=== PATIENT | male | born 1950 | race Caucasian/White ===

== ENCOUNTER 2022-04-05 10:08 | Day surgery (SDC) | payer BC, SELFPAY ==
[2022-04-05 10:32] VITALS: BMI 29.8
[2022-04-05] MEDS: TETRACAINE 0.5% OPHTH 1 DROP EYE-LEFT (10:35)
[2022-04-05 10:40] VITALS: BP 134/78; PULSE 73; RESP 20; TEMP 36.8; O2SAT 99
[2022-04-05] MEDS: KETOROLAC OPHTH 0.5% 1 DROP EYE-LEFT ×5 (10:41→11:01)
[2022-04-05] MEDS: SODIUM CHLORIDE 0.9 % (FLUSH) 10 ML SYRINGE IVF (11:10)
[2022-04-05] MEDS: BALANCED SALT IRRIG SOLN 15 ML EYE-LEFT (12:08)
[2022-04-05] MEDS: TETRACAINE 0.5% OPHTH 2 DROP EYE-LEFT (12:08)
--- NOTE | 2022-04-05 12:55 | W.ANESCHARGE ---
Anesthesia Charges Start Date/Time Anesthesia Start Date: 04/05/22 Anesthesia Start Time: 12:16 Stop Date/Time Anesthesia Stop Date: 04/05/22 Anesthesia Stop Time: 12:55 Summary Emergency: No Extremes of Age: Over 70-CPT 19373
[2022-04-05 13:02] VITALS: BP 115/74; PULSE 67; RESP 20; TEMP 36.8; O2SAT 97
--- NOTE | 2022-04-05 13:12 | W.ANESCHARGE ---
Anesthesia Charges Start Date/Time Anesthesia Start Date: 04/05/22 Anesthesia Start Time: 12:16 Stop Date/Time Anesthesia Stop Date: 04/05/22 Anesthesia Stop Time: 12:55 Summary Emergency: No Extremes of Age: Over 70-CPT 14610
[2022-04-05 13:25] VITALS: BP 116/78; PULSE 71; RESP 20; O2SAT 98
--- NOTE | 2022-05-08 07:32 | OP_ITS ---
OPERATIVE PROCEDURE Kelman phacoemulsification, left eye, with a posterior chamber lens implant. PREOP DIAGNOSIS Nuclear sclerotic cataract, cortical cataract, combined left eye. POSTOP DIAGNOSIS Nuclear sclerotic cataract, cortical cataract, combined left eye, repaired. INDICATIONS FOR SURGERY The patient has experienced a painless progressive loss of vision in his left eye over the past several years. ?It is interfering with his reading, driving, and day-to-day activities. ?This is his only seeing eye. ?He has difficulty with disabling night glare. ?For that reason, he elected to proceed with surgical repair. ?Corrective lenses were not beneficial to him. ?Severity 03/19. OPERATIVE PROCEDURE After obtaining informed consent, the left eye was dilated with a combination of 1% Mydriacyl, 2.5% phenylephrine with topical Ocufen and Vigamox applied to the corneal surface. ?He was brought to the main operating room where under IV sedation, left eye was prepped and draped in usual sterile fashion for intraocular surgery. ?After performing a pause to identify the correct patient, correct?dioptric?lens implant, 18.5 diopters, and correct procedure Kelman phacoemulsification. ?After sterile prep and drape, a lid speculum was placed and a paracentesis created at 6 o'clock. ?The chamber was filled with OVD and entered temporally with a keratome. ?A continuous tear capsulotomy was performed. ?The nucleus was then hydrodissected with local anesthetic and emulsified in a chop technique in the capsular bag. ?Residual cortex was clean. The capsule was clear. ?At this point, a model ZCBOO 18.5 diopter posterior chamber lens implant was injected into the capsular bag and was well centered. ?Residual OVD was cleaned from behind the implant and from the implant, the incision hydrated and noted to be leak free. Topical Alphagan, pilocarpine, and Vigamox were applied to the corneal surface. ?The patient returned to recovery in good condition having tolerated the procedure well. CONDITION ON DISCHARGE Satisfactory.
== END 2022-04-05 13:36 | disposition home or self-care (01) ==
PROVIDERS: PCP Family Medicine; Visit Provider Ophthalmology
PROC: (CPT 66984; principal; 2022-04-05 11:30)
DX: H25.812 Combined forms of age-related cataract, left eye (principal)
CPT/HCPCS: 66984; 00142; 99100; A9270; J2250; J3010; S0020; V2632

== ENCOUNTER 2024-04-11 07:15 | Outpatient (CLI) | payer BC, SELFPAY ==
--- OUTSIDE RECORDS SUMMARY | 2024-04-11 07:19 | XMS_ITS | Clinical Summary ---
Author Organization [employer] [facility] [employer] [facility] Address [place], [place] [address] Care Team Providers Care Water Resources Engineer Name Role Phone Ellis Hammer MD Primary Care Provider [phone]- [phone] Allergies No known active allergies Medications Medication Sig Dispensed Refills Start Date End Date Status aspirin (ECOTRIN) 81 mg enteric coated tablet Take 1 tablet by mouth once daily with a meal. 0 9 Active Cholecalciferol, Vitamin D3, 400 unit capsule Vitamin D3 10 mcg (400 unit) oral capsule take 1 capsule by oral route daily Active Active Soewf-0-WSP-EPA-Fi sh Oil 1,000 mg (120 mg-180 mg) cap Take 1 Capsule (1,000 mg) by mouth. 0 2 Active vit C,K-Nz-vtual-lutei n-zeaxan (PreserVision AREDS-2) capsule Take 1 Capsule by mouth once daily. 0 2 Active polyethylene glycol-electrolyte (GOLYTELY) 236-22.74-6.74 -5.86 gram suspensionIndicati ons:Adenomatous polyp of colon, unspecified part of colon Drink 2 liters the day before colonoscopy and 2 liters 6 hours before colonoscopy appointment 4000 mL 4 Active simvastatin (ZOCOR) 10 mg tabletIndications: Other hyperlipidemia Take 1 Tablet (10 mg) by mouth at bedtime. 90 Tablet 2 4 Active simvastatin (ZOCOR) 10 mg tabletIndications: Other hyperlipidemia TAKE ONE TABLET BY MOUTH AT BEDTIME 90 Tablet 4 03/22/20 24 Discontinued plecanatide 3 mg tabIndications:Chr onic constipation Take 1 pill per day by mouth 30 Tablet 11 4 04/09/20 24 Discontinued(*A vailability/For mulary change/Cost of medication) amoxicillin-clavul anate 875-125 mg tablet (AUGMENTIN)Indicat ions:Cellulitis of toe, right Take 1 Tablet by mouth two times daily with meals for 10 days. 20 Tablet 4 03/14/20 24 Active Problems Problem Noted Date Diagnosed Date Depression, recurrent 01/08/2024 Ocular migraine 02/02/2021 Overview: He gets squiggly lines in the peripheral vision of his left eye (his only good eye; he is blind in his right eye). It only lasts for a few minutes. This was felt to be due to an Ocular Migraine. 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 HYPERLIPIDEMIA 07/09/2007 Irritable bowel syndrome 12/04/2006 Impacted cerumen 12/04/2006 Resolved Problems Problem Noted Date Diagnosed Date Resolved Date Unspecified acute reaction to stress 12/04/2006 07/09/2007 Encounters Date Type Department Care Team Description 04/09/2024 3:40 PM CDT Preop Visit [facility] [address] [facility] [place] [address] Ellis Hammer MD Preoperative Exam (Colonoscopy 2) 04/09/2024 Travel 04/03/2024 Orders Only [facility] [address] [place] [address] Kenn Marley MD <No scans attached> 03/20/2024 Refill [facility] [address] [facility] [place] [address] Ellis Hammer MD Refill Request (Simvastatin) 03/04/2024 1:45 PM CDT Office Visit [facility] [address] [place] [address] Jose Maria Flores DPM Follow Up (Right great toe, PNA check) 03/04/2024 Travel 02/29/2024 12:45 PM CDT Orders Only [facility] [address] [place] [address] Lab[facility] 02/29/2024 Travel 02/27/2024 Telephone [facility] [address] [facility] [place] [address] Kenn Marley MD Prior Authorization (plecanatide 3 mg tab (APPROVED)-No Dates) 02/20/2024 2:30 PM CDT Office Visit [facility] [address] [place] [address] Jose Maria Flores DPM Follow Up (Right ingrown nail pain) 02/20/2024 1:30 PM CDT Office Visit [facility] [address] [facility] [place] [address] Kenn Marley MD Consult (Chronic constipation) 02/20/2024 Travel 02/07/2024 Telephone [facility] [address] [place] [address] Ellis Hammer MD Appointment Request (Cancellation Request for 02/12 Appointment) 01/10/2024 9:00 AM CDT Orders Only [facility] [address] [place] [address] Lab[facility] 01/10/2024 Travel from Last 3 Months Immunizations Name Administration Dates Next Due AMB INFLUENZA IIV3 (AGE 65+ YRS) PF (Flu Clinic Only) 06/20/2019 COVID-19 vaccine (Moderna 100mcg/0.5mL) PF, MDV 02/02/2022,07/27/2021,12/02/2020,2020 COVID-19 vaccine (Moderna 50mcg/0.5mL) 12YO+ BIVALENT PF, MDV 05/01/2023,07/06/2022 Influenza Virus, Unspecified 06/22/2020 Influenza, High-dose Quadriv alent Inactivated 06/30/2021 Influenza, IIV3 (Age >=3 years) 07/09/2007 Influenza, IIV4 06/20/2018 Influenza, Inactivated AIIV4 (Age 65+ Years) Preserv Free 07/09/2023,06/29/2022,06/22/2020 Pneumococcal Poly,23-Valent (Pneumovax) 12/07/2016 Pneumococcal conj 13-Valent (Prevnar 13) 07/29/2015 Td (Age >=7 Years) 12/07/2016,12/04/2006 Zoster (Shingrix-RZV, recombinant) 04/02/2023, Zoster (Zostavax-ZVL, live) 04/15/2014 Family History Medical History Relation Name Comments Alcohol/Drug Father Hyperlipidemia Father Hypertension Father Psychiatric illness Father Cancer Maternal Grandfather Cancer Mother uterine/breast Cancer Paternal Grandfather Anesthesia Problem No Family History Relation Name Status Comments Father Maternal Grandfather Mother Paternal Grandfather Social History Tobacco Use Types Packs/Day Years Used Date Smoking Tobacco: Former Pipe Cigars Smokeless Tobacco: Never Comments:Tried a puff of a c igarette once in college Alcohol Use Standard Drinks/Week Comments Not Currently 0 (1 standard drink = 0.6 oz pur e alcohol) PHQ-2 Answer Date Recorded PHQ-2 TOTAL SCORE 2 01/08/2024 Social Connections Answer Date Recorded Frequency of Communication with Friends and Fami ly 0 01/08/2024 Alcohol Use Answer Date Recorded How often do you have a drink containing alcohol ? 0 01/08/2024 Average Number of Drinks Not on file 024 Frequency of Binge Drinking Not on file 12/11 Financial Resource Strain Answer Date R ecorded Difficulty of Paying Living Expenses 3 01/08/2024 Difficulty of Paying Living Expenses Not on file 01/08/2024 Food Insecurity Answer Date Recorded Worried About Running Out of Food in the Last Ye ar 1 01/08/2024 Transportation Needs Answer Date Record ed Lack of Transportation (Medical) 1 01/08/2024 Housing Stability Answer Date Recorded Unable to Pay for Housing in the Last Year 1 01/08/2024 Sex and Gender Information Value Date Recorded Sex Assigned at Not on file Gender Identity Not on file Sexual Orientation Not on file Obstetrics History Last Filed Vital Signs Vital Sign Reading Time Taken Comments Blood Pressure 129/80 04/09/2024 3:45 PM CDT Pulse 66 04/09/2024 3:45 PM CDT Temperature 36.9 ??C (98.5 ??F) 04/09/2024 3:45 PM CD T Respiratory Rate 18 08/30/2020 9:08 AM PRIMARY THERAPIST Oxygen Saturation 99% 04/09/2024 3:45 PM CDT Inhaled Oxygen Concentration - - Weight 100 kg (220 lb 6.4 oz) 04/09/2024 3:45 PM CDT Height 183 cm (6' 0.05) 04/09/2024 3:45 PM CDT Body Mass Index 29.85 04/09/2024 3:45 PM CDT Plan of Treatment Upcoming Encounters Date Type Department Care Team (Late st Contact Info) Description 06/19/2024 10:15 AM CDT Office Visit [facility] [address] [place] [address] Alannah Hendrickson MD [address] [place] [address] Health Maintenance Due Date Last Done Comments COVID-19 vaccine series (2022- season) 2023 07/09/2023, 05/01/2023, 07/06/2022, Additional history exists Colonoscopy through age 75 04/09/202404/09, 04/09/2019, 08/29/2012, Additional history exists Influenza for age 65+ 05/11/2024 07/09/2023 , 06/29/2022, 06/30/2021, Additional history exists Depression screening for age 12+ 01/09/2025 01/10/2024, 01/08/2024, 01/08/2024, Additional history exists BMI (ht and wt on same day) for age 18+ 04/09/2025 04/09/2024, 01/08/2024, 01/01/2023, Additional history exists Tdap 12/07/2026 Postponed from 1961 (Patient discretion) Tetanus booster 12/07/2026 12/07/2016, 12/04/2006 Lipids for age 45-75 01/09/2029 01/10/2024, 01/01/2023, 09/12/2021, Additional history exists Pneumococcal series for age 65+ Completed 12/07/2016, 07/29/2015 Hepatitis C screening for age 18-79 Completed 09/12/2021 Zoster (shingles) series for age 50+ Completed 04/02/2023, 01/01/2023, 04/15/2014 AAA screening age 65-74 Completed 04/12/2023 Procedures Procedure Name Priority Date/Time Associated Diagnosis Comments BASIC METABOLIC PANEL Routine 02/29/2024 12:50 PM CDT Hyperkalemia BASIC METABOLIC PANEL Routine 01/10/2024 9:00 AM CDT Other hyperlipidemia PSA TOTAL SCREEN Routine 01/10/2024 9:00 AM CDT Prostate cancer screening LIPID PANEL W REFLEX MEASURED LDL Routine 01/10/2024 9:00 AM CDT Other hyperlipidemia US ABD AORTA SCREENING Routine 04/12/2023 8:30 AM CDT Screening for AAA (aortic abdominal aneurysm) ANTI HCV Add On 09/12/2021 7:08 AM PRIMARY THERAPIST Encounter for hepatitis C screening test for low risk patient COLONOSCOPY 04/09/2019 9:00 AM CDT from Last 3 Months or Most Recently Relevant to Health Maintenance Results * (ABNORMAL) BASIC METABOLIC PANEL (02/29/2024 12:50 PM CDT) Only the most recent of2 resultswithin the time period is included. SODIUM 143 136 - 145 mmol/L 02/29/2024 8:21 PM CDT [facility] POTASSIUM 5.1 3.5 - 5.1 mmol/L 02/29/2024 8:21 PM CDT [facility] CHLORIDE 105 98 - 107 mmol/L 02/29/2024 8:21 PM CDT [facility] CO2,TOTAL 28 22 - 29 mmol/L 02/29/2024 8:21 PM CDT [facility] ANION GAP 10 5 - 18 02/29/2024 8:21 PM CDT [facility] GLUCOSE 88 70 - 99 mg/dL 02/29/2024 8:21 PM CDT [facility] CALCIUM 9.7 8.8 - 10.2 mg/dL 02/29/2024 8:21 PM CDT [facility] BUN 20 8 - 23 mg/dL 02/29/2024 8:21 PM CDT [facility] CREATININE 0.95 0.70 - 1.20 mg/dL 02/29/2024 8:21 PM T [facility] BUN/CREAT RATIO 21(H) 10 - 20 8:21 PM T [facility] eGFR 85(L) >90 mL/min/1.7 3m2 02/29/2024 8:21 PM T [facility] Comment:As of 2021, eG FR is calculated by the CKD-EPI creatinine equation without race adjustment. ??eGFR can be influenced by muscle mass, exercise, and diet. ??The reported eGFR is an estimation only and is only applicable if the renal function is stable. Blood BLOOD SPECIMEN / Unknown Venipuncture / Unknown 02/29/2024 12:50 PM CDT 02/29/2024 12:51 PM CDT Ellis Hammer MD CHEMISTRY [facility] [address] [place] [address], * (ABNORMAL) LIPID PANEL W REFLEX MEASURED LDL (01/10/2024 9:00 AM CDT) CHOLESTEROL,TOTAL 121 100 - 199 mg/dL 01/10/2024 5:48 PM CDT [facility] Comment: Cholesterol, Total Reference Ranges Desirable <200 mg/dL Borderline 200-239 mg/dL High >=240 mg/dL TRIGLYCERIDES 66 <150 mg/dL 01/10/2024 5:48 PM CDT [facility] HDL CHOLESTEROL 33(L) >40 mg/dL 5:48 PM CDT [facility] NON-HDL CHOLESTEROL 88 <145 mg/dl 01/10/2024 5:48 PM CDT [facility] CHOL/HDL RATIO 3.67 <4.50 01/10/2024 5:48 PM CDT [facility] LDL CHOLESTEROL 75 <=130 mg/dL 01/10/2024 5:48 PM CDT [facility] VLDL CHOLESTEROL 13 <=30 mg/dL 01/10/2024 5:48 PM CDT [facility] PROVIDER ORDERED STATUS RANDOM 01/10/2024 5:48 PM CDT [facility] Blood BLOOD SPECIMEN / Unknown Venipuncture / Unknown 01/10/2024 9:00 AM CDT 01/10/2024 9:00 AM CDT Ellis Hammer MD CHEMISTRY [facility] [address] [place] [address], * PSA TOTAL SCREEN - Dx Auto-associated (01/10/2024 9:00 AM CDT) PSA TOTAL (SCREEN) 2.79 <4.00 ng/mL 01/10/2024 5:48 PM CDT [facility] Blood BLOOD SPECIMEN / Unknown Venipuncture / Unknown 01/10/2024 9:00 AM CDT 01/10/2024 9:00 AM CDT Narrative [facility] - 01/10/2024 5:48 PM CDT The test method changed on 03/06/2023. If this test has been used for serial monitoring, rebaselining is recommended. Rebaselining consists of 2 measurements, collected 3-6 weeks apart. The [employer] total PSA assay is an electrochemiluminescence immunoassay ECLIA performed on the [employer] e immunoassay analyzers. Values obtained with different assay methods may be different and cannot be used interchangeably. Ellis Hammer MD [facility]AT[facility] [address] [place] [address], [place] * US ABD AORTA SCREENING [[id number]] (04/12/2023 8:30 AM CDT) Anatomical Region Laterality Modality Abdomen, AORTA Ultrasound 04/12/2023 9:39 AM CDT Narrative 04/12/2023 9:39 AM CDT For Patients: ??As a result of the Cures Act, medical imaging exams and procedure reports are released immediately into your electronic medical record. ??You may view this report before your referring provider. ??If you have questions, please contact your health care provider. Examination: US abdominal aorta Indication: Abdominal aortic aneurysm screening. Technique: Vincent scale and color Doppler images of the aorta and common iliac arteries are obtained. Comparison: None Findings: Proximal aorta: 2.9 x 2.5 cm Mid aorta: 2.4 x 2.1 cm Distal aorta: 1.9 x 1.9 cm Right common iliac artery: 1.2 x 1.2 cm Left common iliac artery: 1.3 x 1.2 cm Shadowing gallstones located within the gallbladder measuring 2.3 cm. Impression: No abdominal aortic aneurysm. Cholelithiasis. Dictated by Matty Cespedes MD @ Apr ??3 2022 ??9:39AM (Electronically Signed) ?? Procedure Note Matty Cespedes MD - 04/12/2023 For Patients: As a result of the Cures Act, medical imagingexams and procedure reports are released immediately into your electronicmedical record. You may view this report before your referring provider.If you have questions, please contact your health care provider. Examination: US abdominal aorta Indication: Abdominal aortic aneurysm screening. Technique: Vincent scale and color Doppler images of the aorta and common iliac arteriesare obtained. Comparison: None Findings: Proximal aorta: 2.9 x 2.5 cm Mid aorta: 2.4 x 2.1 cm Distal aorta: 1.9 x 1.9 cm Right common iliac artery: 1.2 x 1.2 cm Left common iliac artery: 1.3 x 1.2 cm Shadowing gallstones located within the gallbladder measuring 2.3 cm. Impression: No abdominal aortic aneurysm. Cholelithiasis. Dictated by Matty Cespedes MD @ Apr 12 2023 9:39AM (Electronically Signed) Ellis Hammer MD US * ANTI HCV (09/12/2021 7:08 AM PRIMARY THERAPIST) HEPATITIS C ANTIBODY Non-React jeff Non-React jeff 09/14/2021 3:[address] [facility] Comment:Antibodies to HCV no t detected; does not exclude the possibility of exposure to HCV. Blood BLOOD SPECIMEN / Unknown Venipuncture / Unknown 09/12/2021 7:08 AM PRIMARY THERAPIST 09/12/2021 7:08 AM PRIMARY THERAPIST Ellis Hammer MD SEND OUTS [facility] [address] [place] [address], [place] * COLONOSCOPY (04/09/2019 9:00 AM CDT) 04/09/2019 9:00 AM CDT Narrative Transcriptions Kenn Marley MD - 04/09/2019 10:34 AM CDT Patient Name: Ryley Stuart Procedure Date: 04/09/2019 Gender: Male Date of : 1950 Admit Type: Outpatient Procedure: Colonoscopy Proceduralist: Kenn Marley MD , Lizz Mora (Nurse) Indications/Pre-Op Diagnosis: Surveillance: Personal history ofadenomatous polyps on last colonoscopy > 5 years ago,Last colonoscopy: August 2012 Medications: Fentanyl 200 micrograms IV, Midazolam 4 mgIV, The level of sedation administered wasmoderate Procedure Description: The patient had risks, benefits and alternatives explained to andgave informed consent. The patient had a stable cardiopulmonary status and judged an adequate candidate for conscious sedation. The Colon CF-[id number] [id number] was passed through the anus and advancedto the cecum, identified by appendiceal orifice and ileocecal valve. The colonoscopy was performed without difficulty. The patient toleratedthe procedure well. The quality of the bowel preparation was good. The ileocecal valve, appendiceal orifice, and rectum were photographed. Complications: No immediate complications. Estimated Blood Loss & Specimen: Estimated blood loss: none. Specimen collected - Yes and sent to Laboratory Findings: The perianal and digital rectal examinations were normal. A 3 mm polyp was found in the descending colon. The polyp wassessile. The polyp was removed with a cold biopsy forceps. Resection and retrieval were complete. The exam was otherwise without abnormality on direct and retroflexion views. Impressions/Post-Op Diagnosis: - One 3 mm polyp in the descending colon, removed with a cold biopsy forceps. Resected and retrieved. - The examination was otherwise normal on direct and retroflexionviews. Recommendation: - Patient has a contact number available for emergencies. The signsand symptoms of potential delayed complications were discussed with the patient. Return to normal activities tomorrow. Written discharge instructions were provided to the patient. - Resume previous diet. - Continue present medications. - Await pathology results. - Repeat colonoscopy in 5 years for surveillance. Moderate Sedation: Moderate (conscious) sedation was administered by the endoscopy nurse and supervised by the endoscopist. The following parameters were monitored: oxygen saturation, heart rate, respiratory rate, blood pressure, adequacy of pulmonary ventilation and reponse to care. Please refer to the patien'ts medical record flowsheets and nursing notes for moderate sedation details. Total physician intraservice time was 24 minutes. Kenn Marley MD 04/09/2019 10:34:30 AM This report has been signed electronically. Note Initiated On: 04/09/2019 9:00 AM Scope In: 10:07:24 AM Scope Withdrawal Time 0 hours 9 minutes 30 seconds Scope Out: 10:29:36 AM Kenn Marley MD PROCEDURE ORD from Last 3 Months or Most Recently Relevant to Health Maintenance Care Teams Water Resources Engineer Relationship Specialty Start Date End Date Ellis Hammer MD [address] [place] [address] PCP - General 07/04/07
--- OUTSIDE RECORDS SUMMARY | 2024-04-11 07:19 | XMS_ITS | Data Portability ---
Author Organization [place] - [facility], Main Office Address [address] [place] [address] Assessment Encounter Date Assessment Date Assessment LastModified by Organization Details LastModified Time 04/04/2021 04/04/2021 1. Neoplasm uncertain etiology left nasal sill we did palpate this we did review its location the area was anesthetized with 1% lidocaine with epinephrine, a tangential shave biopsy performed, tissue submitted and wound care instructions given. 2. Dermatofibroma left leg wrote out diagnosis offered reassurance. 3. Multiple benign nevi discussed ugly duckling concept recommend annual follow-up particular for the 3 dark lesions on the midline back to lower and just above waistline right flank although they have similar common features. 4. Seborrheic keratosis offered reassurance diagnosis right now. Follow-up annually or sooner pending pathology. Mohs surgery was reviewed verbally and with diagrams on the digital board this would be our plan of treatment pending pathology of the left nasal sill biopsy [id number] Not available 04/04/2021 22:12:14 Plan of Treatment Reminders Order Date Submit Date Provider Last Modified By Organization Details Last Modified Time Details Appointments None record ed. Lab pathol ogy, skin 021 04/04/[address] [facility], [address] [place] [address], [address], [place], [address], 12:32:51 Referral None record ed. Procedures None record ed. Surgeries None record ed. Imaging None record ed. Medication Orders None record ed. Patient TargetsNo targets recorded. Patient InstructionsNo instructions recorded. Reason for Referral None Reported. Results Created Date Observation Date Name Description Value Unit Range Abnormal Flag LastModifiedBy Organization Detail LastModifiedTime Result Notes None recorded. Medical Equipment None Reported. Allergies No known drug allergies Medications Name Sig Start Date Stop Date Status Note LastModified by Organization Details LastModified Time simvastatin 10 mg tablet TAKE ONE TABLET BY MOUTH AT BEDTIME active Not Available Not Available No t Available Vitals None Recorded Social History None recorded. Functional Status None recorded. Mental Status None recorded. Family History Nothing Reported. Medical History No medical history recorded. Past Encounters Encounter ID Performer Location Encounter Start Date Encounter Closed Date Diagnosis/Indication Diagnosis SNOMED-CT Code [id number] Fred Torres MD Main Office [address] [address] 04/04/2021 14:45:43 04/04/2021 22:14:02 Neoplasm of uncertain behavior of skin 25174489 Dermatofibroma [id number] Multiple b enign melanocytic nevi [id number] Screening for malignant neoplasm of skin [id number] Health Concerns Section Related Observation LastModified by Organization Detai ls LastModified Time None Recorded Concern Status LastModified by Organization Details LastModified Time None Recorded Advance Directives Directive None Recorded Payers Encounter Date Sequence Insurance Name Policy Number Policy Silva Covered Member ID Silva Member ID Guarantor Name 04/04/2021 1 [place] [id number] Ryley Stuart [id number] Ryley Stuart Notes Date Note Type Note Provider Name and Address Organization Details Recorded Time 04/04/2021 text/html HPI Notes: 70-year-old male presents, accompanied by his for evaluation of his skin. Is had a prior history of actinic keratosis and he is known to me from the [facility]. He notes an area that bleeds when he nicks it on the left nasal sill. Duration more than 2 months may be 3-4 no prior treatments. Above aggravating factors no alleviating factors. He notes no other lesions of bleed scab no will not heal. He notes no lesions that are darkening changing painful or symptomatic otherwise. His past medical history is remarkable for a recent potential ocular migraine or TIA. The addition of atorvastatin. Review systems: patient feels overall excellent health, weight stable, no issues with bleeding, clotting or healing. Fred Torres MD [address],[facility], [place], [address], [facility] 04/04/2021 22:13:55
--- NOTE | 2024-04-11 08:31 | W.ANESCHARGE ---
Anesthesia Charges Start Date/Time Anesthesia Start Date: 04/11/24 Anesthesia Start Time: 08:00 Stop Date/Time Anesthesia Stop Date: 04/11/24 Anesthesia Stop Time: 08:30
== END 2024-04-11 07:16 | disposition home or self-care (01) ==
LOC: OP CLINIC 07:17
PROVIDERS: PCP Family Medicine; Visit Provider Internal Medicine Gastroenterology
DX: Z12.11 Encounter for screening for malignant neoplasm of colon (principal); Z86.010 Personal history of colon polyps
CPT/HCPCS: 00812; 45378; J2704